=== PATIENT | female | born 1950 | race Caucasian/White ===

== ENCOUNTER 2018-06-22 04:40 | Inpatient (IN) | payer MEDICARE, BC ==
[~2018-06-22] VITALS: Ht 170.2 cm; Wt 72.2 kg
[~2018-06-22 04:40] MED LIST: BISO1TAB39 PO; CA C-1 PO; CYAN25003 PO; FLEC50TA3 PO; FLUT10SP BOTHNARES; FOLI0.8C PO; IBUP-24 PO; IBUP1TAB11 PO; POTA20TA19 PO
[2018-06-22] MEDS ORDERED: azithromycin/NS 500mg/250ml 250 ML IV ONE (05:15)
[2018-06-22] MEDS ORDERED: CefTRIAXone/D5W-Rocephin 1gm 50 ML IV ONE (05:15)
[2018-06-22] MEDS ORDERED: normal saline 1000ML IV soln IVB ONE (05:15)
[2018-06-22 05:35] LABS: ALANINE AMINOTRANSFERASE 42 U/L (12-78); ALBUMIN 3.3 G/DL (3.4-5.0); ALBUMIN/GLOBULIN RATIO 0.9 (1.1-1.5); ALKALINE PHOSPHATASE 84 IU/L (46-116); ANION GAP 13 (8-16); ASPARTATE AMINO TRANSFERASE 27 U/L (10-37); BILIRUBIN,TOTAL 1.1 MG/DL (0.1-1.0); BLOOD UREA NITROGEN 12 MG/DL (7-18); CALCIUM 8.6 MG/DL (8.5-10.1); CHLORIDE 102 MMOL/L (99-107); CREATININE 1.09 MG/DL (0.40-0.90); GLUCOSE 122 MG/DL (70-104); POTASSIUM 3.2 MMOL/L (3.5-5.1); SODIUM 139 MMOL/L (135-145); TOTAL CARBON DIOXIDE 24.4 MMOL/L (24-32); TOTAL PROTEIN 7.1 G/DL (6.4-8.2); eGFR 50 ML/MIN
[2018-06-22] MEDS ORDERED: CALC1TAB PO (05:38)
[2018-06-22] MEDS ORDERED: ALBU8.5H8 INH (05:38)
[2018-06-22] MEDS ORDERED: POTA10TA19 PO (05:38)
[2018-06-22] MEDS ORDERED: FLUT50BL (05:38)
[2018-06-22] MEDS ORDERED: CYAN100097 PO (05:38)
[2018-06-22] MEDS ORDERED: ATOR40TA PO (05:38)
[2018-06-22] MEDS ORDERED: APIX5TAB3 PO (05:38)
[2018-06-22] MEDS ORDERED: FLEC100T2 PO (05:38)
[2018-06-22] MEDS ORDERED: [UNRECOGNIZED DRUG - CODE] PO (05:38)
[2018-06-22] MEDS ORDERED: FOLI0.8C PO (05:38)
[2018-06-22] MEDS ORDERED: BISO1TAB4 PO (05:38)
[2018-06-22 05:42] LABS: MAGNESIUM 1.6 MG/DL (1.5-2.4)
[2018-06-22 05:46] LABS: INR 1.2 INR; PARTIAL THROMBOPLASTIN TIME 33 SECONDS (22-32); PROTHROMBIN TIME 11.7 SECONDS (9.0-12.0)
[2018-06-22] MEDS ORDERED: normal saline 1000ml 1,000 ML IV SCH (06:08)
[2018-06-22] MEDS ORDERED: HYDROmorphone 1 mg/ml syringe IV PRN (06:10)
[2018-06-22] MEDS ORDERED: metoclopramide 5 mg/ml inj IV PRN (06:10)
[2018-06-22] MEDS ORDERED: HYDROcodone/acetaminophen 10/325mg tab PO PRN (06:10)
[2018-06-22] MEDS ORDERED: magnesium hydroxide 30ml (MOM) UD suspension PO PRN (06:10)
[2018-06-22] MEDS ORDERED: albuterol 2.5 MG/3 ML nebule NEB PRN (06:10)
[2018-06-22] MEDS ORDERED: morphine 4 MG/ML inj SYRINge IV PRN (06:10)
[2018-06-22] MEDS ORDERED: bisacodyl 10mg suppository rectal RC PRN (06:10)
[2018-06-22] MEDS ORDERED: mag hydrox/Alum hydrox/simeth 30ml oral suspension PO PRN (06:10)
[2018-06-22] MEDS ORDERED: potassium Cl 20 mEq SR tablet PO PRN (06:10)
[2018-06-22] MEDS ORDERED: acetaminophen 650mg rectal suppository RC PRN (06:10)
[2018-06-22] MEDS ORDERED: acetaminophen 325mg tablet PO PRN ×2 (06:10→16:55)
[2018-06-22 06:46] LABS: BASOPHILS % (AUTO) 0.1 % (0-1); EOSINOPHILS % (AUTO) 0.4 % (0-6); HEMATOCRIT 41.1 % (35.0-45.0); HEMOGLOBIN 13.5 g/dl (12.0-16.0); LYMPHOCYTES # (AUTO) 0.4 X10'3 (1.1-4.8); LYMPHOCYTES % (AUTO) 4.5 % (21-51); MEAN CORPUSCULAR HEMOGLOBIN 29.4 PG (27.0-31.0); MEAN CORPUSCULAR HGB CONC 32.9 % (33.0-36.5); MEAN CORPUSCULAR VOLUME 89.3 FL (78-98); MEAN PLATELET VOLUME 10.2 FL (7.4-10.4); MONOCYTES # (AUTO) 0.5 X10'3 (0-0.9); MONOCYTES % (AUTO) 6.6 % (2-12); NEUTROPHILS # (AUTO) 7.3 X10'3 (1.8-7.7); NEUTROPHILS % (AUTO) 88.4 % (42-75); PLATELET COUNT 148 X10'3 (140-440); RED CELL DISTRIBUTION WIDTH 11.9 % (11.5-14.5); WHITE BLOOD COUNT 8.2 X10'3 (4.5-11.0)
--- NOTE | 2018-06-22 06:51 | NUR ---
CONTACTED DR MARCUM IN REGARDS TO AN ORDER OF NS @ 100ML/HOUR TO SEE IF HE WOULD LOWER THE HOURLY RATE, PT DOES NOT HAVE CRACKLES BUT PRO BNP WAS ELEVATED A READING OF 6155. HER BP READINGS WERE A BIT ON THE HYPOTENSIVE SIDE AND HE THOUGHT PT WOULD BENEFIT FROM THE FLUIDS AT THE SPECIFIED RATE. I WILL FOLLOW THE ORDER AND MONITOR/AUSCULTATE FOR BREATH SOUNDS.
[2018-06-22 06:55] LABS: HEMOGLOBIN A1C 5.4 % (4.5-6.2)
--- NOTE | 2018-06-22 07:39 | NUR ---
ATTEMPTED TO GIVE REPORT BUT THE RN IS NOT READY WILL CALL BACK
[2018-06-22 07:43] LABS: PLATELET ESTIMATE NORMAL; TOTAL CELLS COUNTED 100
--- NOTE | 2018-06-22 07:55 | NUR ---
Received report from YESICA Matson in ER. Patient will ariive on gurarrington. Patient has taken her Lipitor, eliquis, and flecainide at home at 0400.
[2018-06-22] MEDS: apixaban 5mg tablet PO SCH ×2 (08:00→20:27)
[2018-06-22] MEDS ORDERED: methylPREDNISolone sod succ/PF 40mg inj. IV SCH (08:00)
[2018-06-22] MEDS: flecainide 50mg tablet PO SCH ×2 (08:00→20:27)
[2018-06-22] MEDS: CefTRIAXone/D5W-Rocephin 1gm 50 ML IV SCH ×2 (08:00→20:26)
[2018-06-22] MEDS: atorvastatin 20mg tablet PO SCH (08:00)
[2018-06-22] MEDS: docusate sod 100mg capsule PO SCH ×2 (08:00→20:32)
[2018-06-22 08:15] VITALS: BP 115/76
--- NOTE | 2018-06-22 08:15 | NUR ---
Patient arrived in room 355 A alert and stable.
[2018-06-22] MEDS: ondansetron/PF 4mg/2ml inj IV PRN (09:29)
[2018-06-22] MEDS: azithromycin/NS 500mg/250ml 250 ML IV SCH (09:52)
[2018-06-22] MEDS ORDERED: ipratropium/albuterol 3ml nebule NEB PRN (10:30)
[2018-06-22] MEDS ORDERED: ipratropium/albuterol 3ml nebule NEB SCH (11:00)
[2018-06-22 12:02] VITALS: BP 145/94
[2018-06-22] MEDS: potassium Cl 20 mEq SR tablet PO PRN ×2 (12:19→16:47)
[2018-06-22] MEDS: bisoprolol 5mg tablet PO SCH (13:00)
[2018-06-22] MEDS ORDERED: furosemide 40mg/4ml inj IV ONE (13:00)
[2018-06-22] MEDS ORDERED: metoprolol tartrate 12.5mg (1/2 tablet) PO PRN (13:10)
[2018-06-22] MEDS ORDERED: FLUT16SP2 BOTHNARES (13:25)
[2018-06-22] MEDS: ipratropium 0.5 MG/2.5ML nebule IH SCH ×2 (15:00→20:35)
--- NOTE | 2018-06-22 18:21 | NUR ---
Problems reprioritized. Patient report given, PARISH ROBERT questions answered & plan of care reviewed with . PATIENT IN BED WITH AT BEDSIDE
[2018-06-22 18:50] VITALS: BP 119/66
[2018-06-22] MEDS: lactobacillus rhamnosus 10,000 MMU CELLS/CAPSULE PO SCH (20:26)
[2018-06-22] MEDS: potassium Cl 20 mEq SR tablet PO SCH (20:27)
[2018-06-22] MEDS: famotidine 20mg tablet PO SCH (20:27)
[2018-06-22] MEDS: fluticasone nasal spray 16GM bottle NS SCH (20:33)
[2018-06-22] MEDS ORDERED: temazepam 15mg capsule PO PRN (21:00)
[2018-06-23] VITALS: BP 114/79
--- NOTE | 2018-06-23 06:15 | NUR ---
Patient in room [facility]. I have received report from Charlie ROBERT and had the opportunity to ask questions and assume patient care. Patient awake alert, she was up walking to the restroom
[2018-06-23 06:36] LABS: ALBUMIN 2.8 G/DL (3.4-5.0); ANION GAP 7 (8-16); BLOOD UREA NITROGEN 15 MG/DL (7-18); BUN/CREATININE RATIO 18.5 (6.6-38.0); CALCIUM 8.4 MG/DL (8.5-10.1); CHLORIDE 105 MMOL/L (99-107); CREATININE 0.81 MG/DL (0.40-0.90); GLUCOSE 88 MG/DL (70-104); SODIUM 141 MMOL/L (135-145); TOTAL CARBON DIOXIDE 28.7 MMOL/L (24-32); eGFR 71 ML/MIN
[2018-06-23 06:39] LABS: BASOPHILS % (AUTO) 0.3 % (0-1); EOSINOPHILS % (AUTO) 0.4 % (0-6); HEMATOCRIT 36.2 % (35.0-45.0); HEMOGLOBIN 12.4 g/dl (12.0-16.0); LYMPHOCYTES # (AUTO) 0.6 X10'3 (1.1-4.8); LYMPHOCYTES % (AUTO) 8.4 % (21-51); MEAN CORPUSCULAR HEMOGLOBIN 30.8 PG (27.0-31.0); MEAN CORPUSCULAR HGB CONC 34.1 % (33.0-36.5); MEAN CORPUSCULAR VOLUME 90.2 FL (78-98); MEAN PLATELET VOLUME 9.6 FL (7.4-10.4); MONOCYTES # (AUTO) 0.4 X10'3 (0-0.9); MONOCYTES % (AUTO) 6.4 % (2-12); NEUTROPHILS # (AUTO) 5.8 X10'3 (1.8-7.7); NEUTROPHILS % (AUTO) 84.5 % (42-75); PLATELET COUNT 129 X10'3 (140-440); RED BLOOD COUNT 4.02 X10'6 (4.20-5.60); RED CELL DISTRIBUTION WIDTH 11.8 % (11.5-14.5); WHITE BLOOD COUNT 6.8 X10'3 (4.5-11.0)
--- NOTE | 2018-06-23 06:50 | NUR ---
Problems reprioritized. Patient report given, questions answered & plan of care reviewed with MELONIE. Addendum: 06/23/18 at 0651 by Josep Mesa RN Amended: Links added.
[2018-06-23 07:08] VITALS: BP 139/72
[2018-06-23] MEDS: ipratropium 0.5 MG/2.5ML nebule IH SCH ×4 (07:34→19:00)
[2018-06-23] MEDS: docusate sod 100mg capsule PO SCH ×2 (08:00→19:37)
[2018-06-23] MEDS ORDERED: non-formulary drug (Fluticasone Propionate (Flonase) 2 SPRAYS) BOTHNARES SCH (08:00)
[2018-06-23] MEDS: CefTRIAXone/D5W-Rocephin 1gm 50 ML IV SCH ×2 (08:37→19:40)
[2018-06-23] MEDS: folic acid 0.4mg tablet PO SCH (08:38)
[2018-06-23] MEDS: predniSONE 20 mg tablet PO SCH (08:38)
[2018-06-23] MEDS: apixaban 5mg tablet PO SCH ×2 (08:38→19:38)
[2018-06-23] MEDS: cyanocobalamin 500mcg tablet PO SCH (08:38)
[2018-06-23] MEDS: flecainide 50mg tablet PO SCH ×2 (08:39→19:37)
[2018-06-23] MEDS: potassium Cl 20 mEq SR tablet PO SCH ×2 (08:39→22:46)
[2018-06-23] MEDS: atorvastatin 20mg tablet PO SCH (08:39)
[2018-06-23] MEDS: lactobacillus rhamnosus 10,000 MMU CELLS/CAPSULE PO SCH ×2 (08:39→19:37)
[2018-06-23] MEDS: furosemide 20 MG/2 ML vial IV SCH ×2 (08:40→19:37)
[2018-06-23] MEDS: calcium carbonate/vitamin D3 tablet PO SCH (08:40)
[2018-06-23] MEDS: bisoprolol 5mg tablet PO SCH (08:44)
[2018-06-23] MEDS: azithromycin/NS 500mg/250ml 250 ML IV SCH (09:30)
[2018-06-23] MEDS: ondansetron/PF 4mg/2ml inj IV PRN (11:26)
[2018-06-23 12:25] VITALS: BP 134/101
--- NOTE | 2018-06-23 18:30 | NUR ---
Problems reprioritized. Patient report given, Edwige RN questions answered & plan of care reviewed with .
--- NOTE | 2018-06-23 18:50 | NUR ---
Patient in room [facility]. I have received report from Avani ROBERT and had the opportunity to ask questions and assume patient care.
[2018-06-23 20:00] VITALS: BP 121/103
[2018-06-23] MEDS: famotidine 20mg tablet PO SCH (22:47)
[2018-06-23] MEDS: fluticasone nasal spray 16GM bottle NS SCH (22:48)
[2018-06-23 23:30] VITALS: BP 160/111
--- NOTE | 2018-06-24 00:44 | NUR ---
Pt. stated that she was having trouble breathing. VS 97.8, 111, 18, 178/95, 92% on 2L, o pain. paged RT. Gave prn metoprolol, called md. Patient weighed and went from 66kg 06/22/18 to 72.2kg.
[2018-06-24] MEDS ORDERED: furosemide 10 MG/1 ML 10ml inj IV ONE (01:00)
[2018-06-24 01:51] LABS: CLARITY,URINE CLEAR (Clear); COLOR,URINE YELLOW (Yellow); GLUCOSE, URINE NEGATIVE (Neg); KETONES,URINE NEGATIVE (Neg); LEUKOCYTE ESTERASE ,URINE NEGATIVE (Neg); NITRITES, URINE NEGATIVE (Neg); OCCULT BLOOD,URINE TRACE-LYSED (Neg); PROTEIN,URINE NEGATIVE (Neg); UROBILINOGEN,URINE 0.2 E.U/dL (0.2-1.0)
[2018-06-24 02:01] LABS: UA COLLECTION TYPE CLN CATCH MIDSTREAM
[2018-06-24 02:06] LABS: ALANINE AMINOTRANSFERASE 43 U/L (12-78); ALBUMIN 2.9 G/DL (3.4-5.0); ALBUMIN/GLOBULIN RATIO 0.7 (1.1-1.5); ALKALINE PHOSPHATASE 78 IU/L (46-116); ANION GAP 8 (8-16); ASPARTATE AMINO TRANSFERASE 43 U/L (10-37); BILIRUBIN,TOTAL 0.5 MG/DL (0.1-1.0); BLOOD UREA NITROGEN 16 MG/DL (7-18); CALCIUM 8.6 MG/DL (8.5-10.1); CHLORIDE 99 MMOL/L (99-107); CREATININE 0.89 MG/DL (0.40-0.90); GLUCOSE 89 MG/DL (70-104); POTASSIUM 3.6 MMOL/L (3.5-5.1); SODIUM 138 MMOL/L (135-145); TOTAL CARBON DIOXIDE 30.8 MMOL/L (24-32); TOTAL PROTEIN 6.8 G/DL (6.4-8.2); eGFR 63 ML/MIN
[2018-06-24 02:09] LABS: BACTERIA,URINE NONE SEEN /HPF (Neg); RBC,URINE 0-2 /HPF (0-2); SQUAMOUS EPITHELIAL CELL,UR FEW /LPF (FEW); WBC,URINE 0-4 /HPF (0-4)
[2018-06-24 02:10] LABS: ABG BASE EXCESS 5.4 mmol/L (-2.0-3.0); ABG HCO3 30.9 mmol/L (22.0-26.0); ABG OXYGEN SATURATION 95.6 % (95-98); ABG PCO2 (T) 48.6 mmHg (32.0-45.0); ABG PH (T) 7.421 (7.350-7.450); ABG PO2 (T) 73.3 mmHg (83-108); ALLEN'S TEST Positive; FCOHb 0.1 % (0.5-1.5); FLOW 3 L/min; FMetHb 0.1 % (0.3-1.12); FO2Hb 95.4 % (94-100); PATIENT TEMPERATURE 36.9; RESPIRATORY RATE (OBSERVED) 18 b/min; TOTAL HEMOGLOBIN 13.4 G/dl (12.0-16.0)
[2018-06-24 02:12] LABS: BASOPHILS % (AUTO) 0.1 % (0-1); EOSINOPHILS % (AUTO) 0 % (0-6); HEMATOCRIT 37.7 % (35.0-45.0); HEMOGLOBIN 12.7 g/dl (12.0-16.0); LYMPHOCYTES # (AUTO) 0.7 X10'3 (1.1-4.8); LYMPHOCYTES % (AUTO) 10.1 % (21-51); MEAN CORPUSCULAR HEMOGLOBIN 29.9 PG (27.0-31.0); MEAN CORPUSCULAR HGB CONC 33.7 % (33.0-36.5); MEAN CORPUSCULAR VOLUME 88.9 FL (78-98); MEAN PLATELET VOLUME 9.7 FL (7.4-10.4); MONOCYTES # (AUTO) 0.6 X10'3 (0-0.9); MONOCYTES % (AUTO) 8.4 % (2-12); NEUTROPHILS # (AUTO) 5.4 X10'3 (1.8-7.7); NEUTROPHILS % (AUTO) 81.4 % (42-75); PLATELET COUNT 173 X10'3 (140-440); RED BLOOD COUNT 4.24 X10'6 (4.20-5.60); RED CELL DISTRIBUTION WIDTH 11.8 % (11.5-14.5); WHITE BLOOD COUNT 6.8 X10'3 (4.5-11.0)
[2018-06-24 02:14] LABS: CREATINE KINASE 710 U/L (26-192); D-DIMER 2.01 MG/L FEU (0-0.50); TROPONIN I < 0.04 NG/ML (0.0-0.05)
[2018-06-24 03:49] LABS: PLATELET ESTIMATE NORMAL; TOTAL CELLS COUNTED 100
--- NOTE | 2018-06-24 05:05 | NUR ---
After paging MD earlier, new orders for 80mg IV push, draw labs, chest x-ray, ABg and a UA. Lasix given all labs and Ua were collected and xray obtained. Pt's VS at 0215: 99, 18, 134/85, 95 on 3L o2.
--- NOTE | 2018-06-24 05:22 | NUR ---
Patient standing up at the sink, states she "feels a whole lot better since having the extra lasix". Patient remains afebrile at 98.5, and states has voided twice, large amounts in the toilet.
[2018-06-24 05:53] LABS: ANION GAP 7 (8-16); BLOOD UREA NITROGEN 16 MG/DL (7-18); BUN/CREATININE RATIO 18.2 (6.6-38.0); CALCIUM 8.6 MG/DL (8.5-10.1); CHLORIDE 99 MMOL/L (99-107); CREATININE 0.88 MG/DL (0.40-0.90); GLUCOSE 83 MG/DL (70-104); POTASSIUM 3.4 MMOL/L (3.5-5.1); SODIUM 139 MMOL/L (135-145); TOTAL CARBON DIOXIDE 32.9 MMOL/L (24-32); eGFR 64 ML/MIN
--- NOTE | 2018-06-24 06:20 | NUR ---
Problems reprioritized. Patient report given, questions answered & plan of care reviewed with Avani ROBERT.
--- NOTE | 2018-06-24 06:25 | NUR ---
Patient in room [facility]. I have received report from Edwige ROBERT and had the opportunity to ask questions and assume patient care.
[2018-06-24 07:46] VITALS: BP 137/70
[2018-06-24] MEDS: ipratropium 0.5 MG/2.5ML nebule IH SCH ×4 (07:59→19:58)
[2018-06-24] MEDS: folic acid 0.4mg tablet PO SCH (08:21)
[2018-06-24] MEDS: potassium Cl 20 mEq SR tablet PO SCH ×2 (08:21→20:33)
[2018-06-24] MEDS: cyanocobalamin 500mcg tablet PO SCH (08:22)
[2018-06-24] MEDS: predniSONE 20 mg tablet PO SCH (08:22)
[2018-06-24] MEDS: lactobacillus rhamnosus 10,000 MMU CELLS/CAPSULE PO SCH ×2 (08:23→20:33)
[2018-06-24] MEDS: atorvastatin 20mg tablet PO SCH (08:23)
[2018-06-24] MEDS: azithromycin/NS 500mg/250ml 250 ML IV SCH (08:23)
[2018-06-24] MEDS: calcium carbonate/vitamin D3 tablet PO SCH (08:23)
[2018-06-24] MEDS: apixaban 5mg tablet PO SCH ×2 (08:23→20:32)
[2018-06-24] MEDS: flecainide 50mg tablet PO SCH ×2 (08:23→20:33)
[2018-06-24] MEDS: docusate sod 100mg capsule PO SCH ×2 (08:23→20:32)
[2018-06-24] MEDS: furosemide 20 MG/2 ML vial IV SCH ×2 (08:23→20:33)
[2018-06-24] MEDS: bisoprolol 5mg tablet PO SCH (10:46)
[2018-06-24] MEDS: CefTRIAXone/D5W-Rocephin 1gm 50 ML IV SCH ×2 (10:46→20:33)
[2018-06-24 12:02] VITALS: BP 118/76
[2018-06-24] MEDS: potassium Cl 20 mEq SR tablet PO PRN (15:20)
[2018-06-24 18:00] VITALS: BP 140/73
--- NOTE | 2018-06-24 18:30 | NUR ---
Problems reprioritized. Patient report given, Radha ROBERT questions answered & plan of care reviewed with .
--- NOTE | 2018-06-24 18:30 | NUR ---
Received report from primary care nurse Avani ROBERT. Assumed patient care. Patient is awake and alert on room air visiting with her roommate. Call light and items of frequent use within reach. Will continue to monitor for changes.
[2018-06-24] MEDS: famotidine 20mg tablet PO SCH (20:32)
[2018-06-24] MEDS: fluticasone nasal spray 16GM bottle NS SCH (20:39)
[2018-06-25] VITALS: BP 134/74
[2018-06-25 06:07] LABS: ANION GAP 9 (8-16); BLOOD UREA NITROGEN 18 MG/DL (7-18); BUN/CREATININE RATIO 18.8 (6.6-38.0); CALCIUM 9.1 MG/DL (8.5-10.1); CHLORIDE 99 MMOL/L (99-107); CREATININE 0.96 MG/DL (0.40-0.90); GLUCOSE 83 MG/DL (70-104); POTASSIUM 3.4 MMOL/L (3.5-5.1); SODIUM 142 MMOL/L (135-145); eGFR 58 ML/MIN
[2018-06-25 06:08] LABS: BASOPHILS % (AUTO) 0.1 % (0-1); EOSINOPHILS # (AUTO) 0.1 X10'3 (0-0.9); EOSINOPHILS % (AUTO) 0.9 % (0-6); HEMATOCRIT 41.2 % (35.0-45.0); HEMOGLOBIN 13.6 g/dl (12.0-16.0); LYMPHOCYTES # (AUTO) 1.2 X10'3 (1.1-4.8); LYMPHOCYTES % (AUTO) 18.1 % (21-51); MEAN CORPUSCULAR HEMOGLOBIN 29.4 PG (27.0-31.0); MEAN CORPUSCULAR VOLUME 89.2 FL (78-98); MEAN PLATELET VOLUME 9.4 FL (7.4-10.4); MONOCYTES # (AUTO) 0.9 X10'3 (0-0.9); MONOCYTES % (AUTO) 12.5 % (2-12); NEUTROPHILS # (AUTO) 4.6 X10'3 (1.8-7.7); NEUTROPHILS % (AUTO) 68.4 % (42-75); PLATELET COUNT 206 X10'3 (140-440); RED BLOOD COUNT 4.62 X10'6 (4.20-5.60); RED CELL DISTRIBUTION WIDTH 11.7 % (11.5-14.5); WHITE BLOOD COUNT 6.8 X10'3 (4.5-11.0)
[2018-06-25 07:00] VITALS: BP 139/91
[2018-06-25] MEDS: calcium carbonate/vitamin D3 tablet PO SCH (07:12)
[2018-06-25] MEDS: furosemide 20 MG/2 ML vial IV SCH (07:12)
[2018-06-25] MEDS: atorvastatin 20mg tablet PO SCH (07:12)
[2018-06-25] MEDS: bisoprolol 5mg tablet PO SCH (07:12)
[2018-06-25] MEDS: flecainide 50mg tablet PO SCH (07:13)
[2018-06-25] MEDS: lactobacillus rhamnosus 10,000 MMU CELLS/CAPSULE PO SCH (07:14)
[2018-06-25] MEDS: docusate sod 100mg capsule PO SCH (07:14)
[2018-06-25] MEDS: apixaban 5mg tablet PO SCH (07:14)
[2018-06-25] MEDS: folic acid 0.4mg tablet PO SCH (07:14)
[2018-06-25] MEDS: potassium Cl 20 mEq SR tablet PO SCH (07:15)
[2018-06-25] MEDS: CefTRIAXone/D5W-Rocephin 1gm 50 ML IV SCH (07:15)
[2018-06-25] MEDS: fluticasone nasal spray 16GM bottle NS SCH (07:18)
[2018-06-25] MEDS: cyanocobalamin 500mcg tablet PO SCH (07:25)
[2018-06-25] MEDS: ipratropium 0.5 MG/2.5ML nebule IH SCH ×2 (07:29→10:55)
[2018-06-25] MEDS ORDERED: azithromycin 250mg tablet PO SCH (08:00)
[2018-06-25] MEDS ORDERED: prednisone 10mg tablet PO SCH (08:00)
--- NOTE | 2018-06-25 09:38 | NUR ---
Patient ambulating with and checked patients oxygen saturation she is currently 91% on RA with ambulation
[2018-06-25] MEDS ORDERED: potassium Cl 20 mEq SR tablet PO STA (10:45)
[2018-06-25 11:00] VITALS: BP 123/63
[2018-06-25] MEDS ORDERED: CEFD300C3 PO (12:19)
[2018-06-25] MEDS ORDERED: LACT1CAP26 PO (12:19)
[2018-06-25] MEDS ORDERED: FURO40TA4 PO (12:19)
[2018-06-25] MEDS ORDERED: ATRNS (12:19)
[2018-06-25] MEDS ORDERED: BUDE10.22 INH (12:19)
--- NOTE | 2018-06-25 14:11 | NUR ---
Patients discharge instructions reviewed with patient and patient verbalized understanding. Patients at bedside. Tele Dc'd for discharge along with PIV cannula intact. Patient states she has all her belongings. Patient was taken to vehicle where was waiting by Sandra Prather via wheelchair.
[2018-06-25] MEDS ORDERED: fluticasone nasal spray 16GM bottle NS SCH (20:00)
== END 2018-06-25 13:40 | disposition home or self-care (01) | DRG 871 ==
LOC: ER 04:41 → ED HOLD 06:08 → EDBEDREQ 07:33 → SUR 3N 08:13
PROVIDERS: ADMIT Family Medicine; ATTEND Hospitalist
DX: A41.9 Sepsis, unspecified organism (principal); J13 Pneumonia due to Streptococcus pneumoniae; I50.33 Acute on chronic diastolic (congestive) heart failure; J96.01 Acute respiratory failure with hypoxia; J44.1 Chronic obstructive pulmonary disease with (acute) exacerbation; J44.0 Chronic obstructive pulmonary disease with (acute) lower respiratory infection; E78.00 Pure hypercholesterolemia, unspecified; E78.5 Hyperlipidemia, unspecified; E86.0 Dehydration; E87.6 Hypokalemia; I48.2 Chronic atrial fibrillation; Z79.899 Other long term (current) drug therapy; Z79.01 Long term (current) use of anticoagulants; Z88.8 Allergy status to other drugs, medicaments and biological substances; Z87.891 Personal history of nicotine dependence
CPT/HCPCS: 36415; 36600; 71045; 80048; 80053; 81001; 82550; 82803; 83036; 83605; 83735; 83880; 84100; 84145; 84443; 84484; 85018; 85025; 85379; 85610; 85730; 87040; 87070; 87502; 87503; 93005; 93306; 94640; 94760; 96365; 96368; 99285; G0378; J0456; J0696; J1940; J2405; J2920; J7030; J7512

== ENCOUNTER 2018-07-06 05:51 | Day surgery (SDC) | payer MEDICARE, BC ==
[2018-07-05 09:37] LABS: BASOPHILS # (AUTO) 0.1 X10'3 (0-0.2); EOSINOPHILS # (AUTO) 0.3 X10'3 (0-0.9); EOSINOPHILS % (AUTO) 3.9 % (0-6); HEMOGLOBIN 13.1 g/dl (12.0-16.0); LYMPHOCYTES # (AUTO) 1.3 X10'3 (1.1-4.8); LYMPHOCYTES % (AUTO) 18.8 % (21-51); MEAN CORPUSCULAR HEMOGLOBIN 28.6 PG (27.0-31.0); MEAN CORPUSCULAR HGB CONC 31.9 % (33.0-36.5); MEAN CORPUSCULAR VOLUME 89.6 FL (78-98); MEAN PLATELET VOLUME 8.8 FL (7.4-10.4); MONOCYTES # (AUTO) 0.8 X10'3 (0-0.9); MONOCYTES % (AUTO) 11.1 % (2-12); NEUTROPHILS # (AUTO) 4.5 X10'3 (1.8-7.7); NEUTROPHILS % (AUTO) 65.2 % (42-75); PLATELET COUNT 267 X10'3 (140-440); RED BLOOD COUNT 4.58 X10'6 (4.20-5.60); RED CELL DISTRIBUTION WIDTH 12.3 % (11.5-14.5)
[2018-07-05 09:52] LABS: PARTIAL THROMBOPLASTIN TIME 26 SECONDS (22-32); PROTHROMBIN TIME 10.2 SECONDS (9.0-12.0)
[2018-07-05 09:54] LABS: ALBUMIN 3.1 G/DL (3.4-5.0); ANION GAP 10 (8-16); BLOOD UREA NITROGEN 18 MG/DL (7-18); BUN/CREATININE RATIO 15.5 (6.6-38.0); CALCIUM 8.7 MG/DL (8.5-10.1); CHLORIDE 106 MMOL/L (99-107); CREATININE 1.16 MG/DL (0.40-0.90); GLUCOSE 103 MG/DL (70-104); POTASSIUM 3.3 MMOL/L (3.5-5.1); SODIUM 147 MMOL/L (135-145); TOTAL CARBON DIOXIDE 31.4 MMOL/L (24-32); eGFR 47 ML/MIN
[2018-07-06] VITALS (12 sets, daily range): BP systolic 108–129; BP diastolic 58–75
[~2018-07-06] VITALS: Ht 170.2 cm; Wt 71.1 kg
[~2018-07-06 05:51] MED LIST changes: +ALBU8.5H8 INH; +APIX5TAB3 PO; +ATOR40TA PO; +ATRNS; -BISO1TAB39 PO; +BUDE10.22 INH; -CA C-1 PO; +CALC1TAB PO; +CEFD300C3 PO; +CYAN100097 PO; -CYAN25003 PO; +FLEC100T2 PO; -FLEC50TA3 PO; -FLUT10SP BOTHNARES; +FLUT16SP2 BOTHNARES; +FURO40TA4 PO; -IBUP-24 PO; -IBUP1TAB11 PO; +LACT1CAP26 PO; +POTA10TA19 PO; -POTA20TA19 PO; +[UNRECOGNIZED DRUG - CODE] PO
[2018-07-06] MEDS ORDERED: LORazepam 0.5 MG tablet PO PRN (06:05)
[2018-07-06] MEDS ORDERED: sod bicarbonate 150mEq in D5W 1,150 ML IV ONE (06:05)
[2018-07-06] MEDS ORDERED: diphenhydrAMINE 25mg capsule PO PRN (06:10)
[2018-07-06] MEDS ORDERED: FURO40TA4 PO (06:16)
[2018-07-06] MEDS ORDERED: LACT1CAP65 PO (06:16)
[2018-07-06] MEDS ORDERED: BUDE10.22 INH (06:18)
[2018-07-06] MEDS ORDERED: ATRNS (06:18)
[2018-07-06] MEDS ORDERED: normal saline 1000ml 1,000 ML IV SCH (06:30)
[2018-07-06] MEDS ORDERED: LIDOcaine/PRILOcaine 5gm cream TP ONE (07:25)
[2018-07-06] MEDS ORDERED: nitroGLYCERIN-Tridil 50MG/D5W 250 ML IV ONE (07:36)
[2018-07-06] MEDS ORDERED: verapamil 2.5 mg/ml inj IV ONE (07:36)
[2018-07-06] MEDS ORDERED: LIDOcaine 1% (10mg/ml)w/preservative injection 20ml MDV ONE (07:37)
[2018-07-06] MEDS ORDERED: fentaNYL/PF 50MCG/1 ML 2ML syringe ONE (07:37)
[2018-07-06] MEDS ORDERED: heparin 1,000unit/ml 10ml vial 10 ML ONE (07:37)
[2018-07-06] MEDS ORDERED: iohexol 350 MG/ML 50ML vial IV ONE ×2 (07:37→08:36)
[2018-07-06] MEDS ORDERED: midazolam 2 mg/2 ml injection ONE (07:37)
[2018-07-06] MEDS ORDERED: iohexol 350MG/ML 100ml bottle IV ONE (07:37)
== END 2018-07-06 14:50 | disposition home or self-care (01) ==
LOC: SSTAY O 05:51
PROVIDERS: ATTEND Internal Medicine Cardiovascular Disease
DX: I25.119 Atherosclerotic heart disease of native coronary artery with unspecified angina pectoris (principal); I48.0 Paroxysmal atrial fibrillation; I10 Essential (primary) hypertension; I49.5 Sick sinus syndrome; E78.49 Other hyperlipidemia; I34.0 Nonrheumatic mitral (valve) insufficiency; Z88.8 Allergy status to other drugs, medicaments and biological substances; Z79.899 Other long term (current) drug therapy; Z98.890 Other specified postprocedural states; Z90.49 Acquired absence of other specified parts of digestive tract; Z87.891 Personal history of nicotine dependence
CPT/HCPCS: 36415; 80048; 85025; 85610; 85730; 93005; 93458; 99152; 99153; A6257; J1644; J2001; J2250; J3010; J7030; Q0163; Q9967; A4620; C1769; J3490

== ENCOUNTER 2018-07-28 03:46 | Emergency (ER) | payer MEDICARE, BC ==
[~2018-07-28] VITALS: Ht 167.6 cm; Wt 70.9 kg
[~2018-07-28 03:46] MED LIST changes: +BISO1TAB39 PO; -CEFD300C3 PO; -LACT1CAP26 PO; -[UNRECOGNIZED DRUG - CODE] PO
[2018-07-28] MEDS ORDERED: aspirin 81mg tab.chew PO ONE (03:50)
[2018-07-28] MEDS ORDERED: aspirin 325mg tablet PO ONE (04:15)
[2018-07-28 04:18] LABS: BASOPHILS % (AUTO) 0.4 % (0-1); EOSINOPHILS # (AUTO) 0.3 X10'3 (0-0.9); EOSINOPHILS % (AUTO) 4.4 % (0-6); HEMATOCRIT 40.5 % (35.0-45.0); HEMOGLOBIN 13.3 g/dl (12.0-16.0); LYMPHOCYTES # (AUTO) 1.6 X10'3 (1.1-4.8); LYMPHOCYTES % (AUTO) 22.1 % (21-51); MEAN CORPUSCULAR HEMOGLOBIN 29.2 PG (27.0-31.0); MEAN CORPUSCULAR HGB CONC 32.9 g/dL (33.0-36.5); MEAN CORPUSCULAR VOLUME 88.7 FL (78-98); MEAN PLATELET VOLUME 9.1 FL (7.4-10.4); MONOCYTES # (AUTO) 0.7 X10'3 (0-0.9); MONOCYTES % (AUTO) 9.2 % (2-12); NEUTROPHILS # (AUTO) 4.7 X10'3 (1.8-7.7); NEUTROPHILS % (AUTO) 63.9 % (42-75); PLATELET COUNT 161 X10'3 (140-440); RED BLOOD COUNT 4.56 X10'6 (4.20-5.60); RED CELL DISTRIBUTION WIDTH 13.7 % (11.5-14.5); WHITE BLOOD COUNT 7.3 X10'3 (4.5-11.0)
[2018-07-28 04:33] LABS: ALANINE AMINOTRANSFERASE 37 U/L (12-78); ALBUMIN 3.3 G/DL (3.4-5.0); ALBUMIN/GLOBULIN RATIO 0.9 (1.1-1.5); ALKALINE PHOSPHATASE 79 IU/L (46-116); ANION GAP 8 (8-16); ASPARTATE AMINO TRANSFERASE 26 U/L (10-37); BILIRUBIN,TOTAL 0.7 MG/DL (0.1-1.0); BLOOD UREA NITROGEN 24 MG/DL (7-18); BUN/CREATININE RATIO 20.9 (6.6-38.0); CALCIUM 8.8 MG/DL (8.5-10.1); CHLORIDE 107 MMOL/L (99-107); CREATININE 1.15 MG/DL (0.40-0.90); GLUCOSE 88 MG/DL (70-104); SODIUM 145 MMOL/L (135-145); TOTAL CARBON DIOXIDE 30.1 MMOL/L (24-32); TOTAL PROTEIN 6.9 G/DL (6.4-8.2); eGFR 47 ML/MIN
[2018-07-28 04:34] LABS: POTASSIUM 4.1 MMOL/L (3.5-5.1)
[2018-07-28] MEDS: nitroGLYCERIN 0.4mg SUBLingual tab SL PRN ×3 (04:35→05:07)
--- NOTE | 2018-07-28 04:41 | NUR ---
PIV IN PLACE, LABS DRAWN, ASA 324 AND 1 TAB NITRO GIVEN. AT BEDSIDE. PT REPORTS LAST THURSDAY SHE HAD A CARDIOVERSION WITH DR. FERNANDEZ AND WAS STARTED ON NEW PERSCRIPTION OF SOTALOL 40 MG BID. HE ALSO DISCONTINUED HER FLECAINIDE 100 MG BID AND BISOPROLOL/HTCZ 5/6.25 DAILY. PT REPROTS HER PAIN IS 5 OUT OF 10 SUBSTERNAL AND RADIATES TO HER BACK AND HER NECK. SHE HAS NO OTHER SYMPTOMS.
[2018-07-28 04:52] LABS: PROTHROMBIN TIME 10.6 SECONDS (9.0-12.0)
[2018-07-28] MEDS ORDERED: SOTA80TA73 PO (04:52)
[2018-07-28] MEDS ORDERED: APIX5TAB3 PO (04:52)
--- NOTE | 2018-07-28 04:57 | NUR ---
pt reports cp now 2 out of 10 and not radiating to her back. she continues to have anterior neck pain that radiates to her right ear. med rec completed., nagi, at bedside. vss.
--- NOTE | 2018-07-28 04:59 | NUR ---
dr. leonard aware of above note.
--- NOTE | 2018-07-28 05:31 | NUR ---
PT TO BE ADMITTED, AWAITING HOSPITALIST.
--- NOTE | 2018-07-28 08:55 | NUR ---
Call placed to Dr. Persaud's answering service. They paged him and we are awaiting a call back.
[2018-07-28 10:44] VITALS: BP 145/92
== END 2018-07-28 10:46 | disposition home or self-care (01) ==
LOC: ER 03:47
DX: I48.91 Unspecified atrial fibrillation (principal); I50.9 Heart failure, unspecified; E78.00 Pure hypercholesterolemia, unspecified; J44.9 Chronic obstructive pulmonary disease, unspecified; Z88.8 Allergy status to other drugs, medicaments and biological substances; Z79.899 Other long term (current) drug therapy; Z87.891 Personal history of nicotine dependence
CPT/HCPCS: 36415; 71045; 80053; 83735; 83880; 84484; 85025; 85610; 93005; 99284

== ENCOUNTER 2018-08-11 10:27 | Day surgery (SDC) | payer MEDICARE, BC ==
[2018-08-11] VITALS (28 sets, daily range): BP systolic 136–175; BP diastolic 66–118
[~2018-08-11] VITALS: Ht 170.2 cm; Wt 71.3 kg
[~2018-08-11 10:27] MED LIST changes: -BISO1TAB39 PO; -FLEC100T2 PO; +SOTA80TA73 PO
[2018-08-11] MEDS ORDERED: normal saline 1000ml 1,000 ML IV SCH ×2 (11:00→11:25)
[2018-08-11] MEDS ORDERED: LORazepam 0.5 MG tablet PO ONE ×2 (11:00→11:25)
[2018-08-11] MEDS ORDERED: SOTA80TA73 PO (11:15)
[2018-08-11] MEDS ORDERED: MIDAZolam 5mg/ml 2ml vial IV ONE (11:25)
[2018-08-11] MEDS ORDERED: morphine 10mg/ml inj. IV ONE (11:25)
[2018-08-11] MEDS ORDERED: amiodarone in dextrose, iso-osm 150mg/100ml bag IV ONE (11:25)
[2018-08-11] MEDS ORDERED: atropine 0.1mg/ml 10ml syringe IV ONE (11:25)
[2018-08-11 12:39] LABS: ANION GAP 9 (8-16); BASOPHILS # (AUTO) 0.1 X10'3 (0-0.2); BASOPHILS % (AUTO) 0.8 % (0-1); BLOOD UREA NITROGEN 16 MG/DL (7-18); BUN/CREATININE RATIO 17.6 (6.6-38.0); CALCIUM 9.5 MG/DL (8.5-10.1); CHLORIDE 107 MMOL/L (99-107); CREATININE 0.91 MG/DL (0.40-0.90); EOSINOPHILS # (AUTO) 0.3 X10'3 (0-0.9); GLUCOSE 77 MG/DL (70-104); HEMATOCRIT 42.5 % (35.0-45.0); HEMOGLOBIN 13.8 g/dl (12.0-16.0); LYMPHOCYTES # (AUTO) 1.7 X10'3 (1.1-4.8); LYMPHOCYTES % (AUTO) 25.1 % (21-51); MEAN CORPUSCULAR HGB CONC 32.6 g/dL (33.0-36.5); MEAN CORPUSCULAR VOLUME 88.9 FL (78-98); MEAN PLATELET VOLUME 9.1 FL (7.4-10.4); MONOCYTES # (AUTO) 0.5 X10'3 (0-0.9); MONOCYTES % (AUTO) 8.2 % (2-12); NEUTROPHILS # (AUTO) 4.1 X10'3 (1.8-7.7); NEUTROPHILS % (AUTO) 60.9 % (42-75); PLATELET COUNT 206 X10'3 (140-440); POTASSIUM 3.6 MMOL/L (3.5-5.1); RED BLOOD COUNT 4.78 X10'6 (4.20-5.60); RED CELL DISTRIBUTION WIDTH 14.5 % (11.5-14.5); SODIUM 145 MMOL/L (135-145); TOTAL CARBON DIOXIDE 29.5 MMOL/L (24-32); WHITE BLOOD COUNT 6.7 X10'3 (4.5-11.0); eGFR 62 ML/MIN
== END 2018-08-11 14:50 | disposition home or self-care (01) ==
LOC: SSTAY O 10:27
PROVIDERS: ATTEND Internal Medicine Cardiovascular Disease
DX: I48.0 Paroxysmal atrial fibrillation (principal); I25.10 Atherosclerotic heart disease of native coronary artery without angina pectoris; I10 Essential (primary) hypertension; Z79.899 Other long term (current) drug therapy; Z98.890 Other specified postprocedural states; E78.49 Other hyperlipidemia; I49.5 Sick sinus syndrome
CPT/HCPCS: 36415; 80048; 85025; 92960; 93005; J0282; J0461; J2250; J2270; J7030

== ENCOUNTER 2018-08-16 08:41 | Outpatient (CLI) | payer MEDICARE, BC ==
[2018-08-16 10:14] LABS: ALBUMIN 3.5 G/DL (3.4-5.0); ANION GAP 8 (8-16); BLOOD UREA NITROGEN 18 MG/DL (7-18); BUN/CREATININE RATIO 16.8 (6.6-38.0); CALCIUM 9.3 MG/DL (8.5-10.1); CHLORIDE 106 MMOL/L (99-107); CREATININE 1.07 MG/DL (0.40-0.90); GLUCOSE 97 MG/DL (70-104); POTASSIUM 3.3 MMOL/L (3.5-5.1); SODIUM 144 MMOL/L (135-145); TOTAL CARBON DIOXIDE 29.7 MMOL/L (24-32); eGFR 51 ML/MIN
== END 2018-08-16 23:59 | disposition home or self-care (01) ==
LOC: LAB 08:41
PROVIDERS: ATTEND Internal Medicine Cardiovascular Disease
DX: I48.0 Paroxysmal atrial fibrillation (principal); R06.02 Shortness of breath; I10 Essential (primary) hypertension; Z91.018 Allergy to other foods; Z88.9 Allergy status to unspecified drugs, medicaments and biological substances
CPT/HCPCS: 36415; 80048; 83880

== ENCOUNTER 2018-09-24 11:42 | Observation (INO) | payer MEDICARE, BC ==
[2018-09-23 13:50] LABS: BASOPHILS # (AUTO) 0.1 X10'3 (0-0.2); BASOPHILS % (AUTO) 0.9 % (0-1); EOSINOPHILS # (AUTO) 0.3 X10'3 (0-0.9); EOSINOPHILS % (AUTO) 4.7 % (0-6); HEMATOCRIT 34.9 % (35.0-45.0); HEMOGLOBIN 11.8 g/dl (12.0-16.0); LYMPHOCYTES # (AUTO) 1.2 X10'3 (1.1-4.8); LYMPHOCYTES % (AUTO) 16.6 % (21-51); MEAN CORPUSCULAR HEMOGLOBIN 29.9 PG (27.0-31.0); MEAN CORPUSCULAR HGB CONC 33.8 g/dL (33.0-36.5); MEAN CORPUSCULAR VOLUME 88.5 FL (78-98); MEAN PLATELET VOLUME 9.3 FL (7.4-10.4); MONOCYTES # (AUTO) 0.6 X10'3 (0-0.9); NEUTROPHILS # (AUTO) 5.1 X10'3 (1.8-7.7); NEUTROPHILS % (AUTO) 69.8 % (42-75); PLATELET COUNT 187 X10'3 (140-440); RED BLOOD COUNT 3.94 X10'6 (4.20-5.60); WHITE BLOOD COUNT 7.3 X10'3 (4.5-11.0)
[2018-09-23 13:57] LABS: ALBUMIN 3.5 G/DL (3.4-5.0); ANION GAP 4 (8-16); BLOOD UREA NITROGEN 23 MG/DL (7-18); BUN/CREATININE RATIO 17.6 (6.6-38.0); CALCIUM 9.4 MG/DL (8.5-10.1); CHLORIDE 109 MMOL/L (99-107); CREATININE 1.31 MG/DL (0.40-0.90); GLUCOSE 88 MG/DL (70-104); POTASSIUM 3.5 MMOL/L (3.5-5.1); SODIUM 146 MMOL/L (135-145); TOTAL CARBON DIOXIDE 32.9 MMOL/L (24-32); eGFR 40 ML/MIN
[2018-09-23 14:04] LABS: INR 1.1 INR; PARTIAL THROMBOPLASTIN TIME 24 SECONDS (22-32); PROTHROMBIN TIME 10.7 SECONDS (9.0-12.0)
[~2018-09-24] VITALS: Ht 170.2 cm; Wt 72.3 kg
[2018-09-24] VITALS (17 sets, daily range): BP systolic 100–155; BP diastolic 49–96
[2018-09-24] MEDS ORDERED: cefazolin/dext.iso 2gm/100ml 100 ML IV ONE ×2 (11:58→13:41)
[2018-09-24] MEDS ORDERED: normal saline 1000ml 1,000 ML IV SCH (12:00)
[2018-09-24] MEDS ORDERED: BISO1TAB4 PO (12:44)
[2018-09-24] MEDS ORDERED: AMIO200T54 PO (12:44)
[2018-09-24] MEDS ORDERED: lidocaine 1%/epinephrine 1:100,000 injection 50ml vial ONE (13:40)
[2018-09-24] MEDS ORDERED: midazolam 2 mg/2 ml injection ONE ×3 (13:40→14:54)
[2018-09-24] MEDS ORDERED: fentaNYL/PF 50MCG/1 ML 2ML syringe ONE ×2 (13:40→14:54)
[2018-09-24] MEDS ORDERED: ceFAZolin 1000mg inj ONE (13:41)
[2018-09-24] MEDS ORDERED: amiodarone 50MG/ML inj IV ONE (14:38)
--- NOTE | 2018-09-24 14:40 | NUR ---
VITALS STABLE. TRANSFUSION COMPLETE. PT WAS DISCHARGED HOME WITH HIS . PT HAD ALL BELONGINGS.
[2018-09-24] MEDS ORDERED: HYDROcodone/acetaminophen 5mg/325mg tablet PO PRN (15:55)
[2018-09-24] MEDS ORDERED: sod chloride 0.9% 10ml flush syringe IV SCH (16:00)
[2018-09-24] MEDS ORDERED: normal saline 1000ml 1,000 ML IV ONE (16:00)
[2018-09-24] MEDS ORDERED: amiodarone 150mg/dext, iso-os 100 ML IV ONE (17:05)
--- NOTE | 2018-09-24 18:45 | NUR ---
Patient in room PCU 3013. I have received report from Short Stay RN and had the opportunity to ask questions and assume patient care.
[2018-09-24] MEDS: HYDROcodone/acetaminophen 10/325mg tab PO PRN ×2 (18:57→23:22)
--- NOTE | 2018-09-24 19:00 | NUR ---
Pt arrived from [facility] via WC, accompanied by , in no acute distress. Assisted to BR f/void. Back to bed, immobilizing sling in place to L arm, pressure drsg to L upper chest CDI. Education given to pt. and regarding rationale f/Amiodarone drip and VS parameter goals. Mobile set up to monitor VS closely per IV Amiodarone protocol. Post-procedure VSS.
[2018-09-24] MEDS: amiodarone/D5 360MG/200ML BAG 200 ML IV SCH (19:38)
[2018-09-24] MEDS ORDERED: HYDROcodone/acetaminophen 10/325mg tab PO PRN (20:30)
[2018-09-24] MEDS ORDERED: albuterol 2.5 MG/3 ML nebule NEB PRN (21:20)
[2018-09-25] VITALS (7 sets, daily range): BP systolic 111–133; BP diastolic 56–75
[2018-09-25] MEDS: amiodarone/D5 360MG/200ML BAG 200 ML IV SCH ×2 (01:39→07:00)
[2018-09-25] MEDS: cephalexin 500mg capsule PO SCH ×2 (01:40→08:26)
[2018-09-25] MEDS: albuterol 2.5 MG/3 ML nebule NEB SCH ×2 (02:57→07:25)
--- NOTE | 2018-09-25 06:53 | NUR ---
Patient in room PCU 3013. I have received report from Laurel RN / Gary ROBERT and had the opportunity to ask questions and assume patient care.
--- NOTE | 2018-09-25 06:59 | NUR ---
Problems reprioritized. Patient report given, questions answered & plan of care reviewed with Cadence ROBERT.
[2018-09-25] MEDS ORDERED: atorvastatin 20mg tablet PO SCH (08:00)
[2018-09-25] MEDS ORDERED: atenolol 50mg tablet PO SCH (08:00)
[2018-09-25] MEDS ORDERED: folic acid 0.4mg tablet PO SCH (08:00)
[2018-09-25] MEDS ORDERED: apixaban 5mg tablet PO SCH (08:00)
[2018-09-25] MEDS ORDERED: HYDROchlorothiazide 25mg tablet PO SCH (08:00)
[2018-09-25] MEDS ORDERED: amiodarone 200mg tablet PO SCH (08:00)
[2018-09-25] MEDS ORDERED: potassium chloride 10mEq ER tablet PO SCH (08:00)
[2018-09-25] MEDS ORDERED: fluticasone nasal spray 16GM bottle NS SCH (08:00)
[2018-09-25] MEDS ORDERED: budesonide 0.5mg/2ml UD nebule IH SCH (08:00)
[2018-09-25] MEDS ORDERED: furosemide 20MG tablet PO SCH (08:00)
[2018-09-25] MEDS ORDERED: cyanocobalamin 500mcg tablet PO SCH (08:00)
[2018-09-25] MEDS: HYDROcodone/acetaminophen 10/325mg tab PO PRN (08:25)
[2018-09-25] MEDS ORDERED: calcium carbonate/vitamin D3 tablet PO SCH (08:30)
--- NOTE | 2018-09-25 11:12 | NUR ---
Telephoned [facility]. AM EKG is completed and on line, with hard copy in the chart. Requested PPM check up for this AM.
[2018-09-25] MEDS ORDERED: TRAM50TA2 PO (11:48)
--- NOTE | 2018-09-25 12:00 | NUR ---
PPM representation did internation and provided hard copy report to patients chart.
--- NOTE | 2018-09-25 13:20 | NUR ---
Discharge to home: Instructions for pacemaker care well understood. Return demonstration provided to nursing. Written discharge information provided. All belongings are with Pt. IV is out without s/s of infection, Sling is in place to Left side. Pt. understands the rational for no overhead reaching, and for leaving the sling on and dressing in place. Delivered via WC to Personal vehicle is driving. [facility]: Rx pain medications. She has radio time buyer help and will call for follow-up appointment with Dr. Canelo RUSHING this Thursday following the weekend.
== END 2018-09-25 13:20 | disposition home or self-care (01) ==
LOC: SSTAY O 11:42 → PCU 3S 18:55
PROVIDERS: ADMIT Internal Medicine Cardiovascular Disease; ATTEND Internal Medicine Cardiovascular Disease
DX: I49.5 Sick sinus syndrome (principal); I10 Essential (primary) hypertension; E78.5 Hyperlipidemia, unspecified; I48.0 Paroxysmal atrial fibrillation; I25.10 Atherosclerotic heart disease of native coronary artery without angina pectoris; Z86.79 Personal history of other diseases of the circulatory system
CPT/HCPCS: 33208; 36415; 71046; 80048; 85025; 85610; 85730; 93005; 94640; 94760; 96365; 96366; A6449; C1785; C1898; G0378; J0282; J0690; J2250; J3010; J3490; J7030; 99152; 99153; A4565; A4620; J3420; J7626

== ENCOUNTER 2019-01-20 06:59 | Day surgery (SDC) | payer MEDICARE, BC ==
[2019-01-19 09:08] LABS: BASOPHILS # (AUTO) 0.1 X10'3 (0-0.2); BASOPHILS % (AUTO) 1.1 % (0-1); EOSINOPHILS # (AUTO) 0.3 X10'3 (0-0.9); EOSINOPHILS % (AUTO) 5.4 % (0-6); HEMATOCRIT 31.4 % (35.0-45.0); HEMOGLOBIN 10.1 g/dl (12.0-16.0); LYMPHOCYTES # (AUTO) 1.3 X10'3 (1.1-4.8); MEAN CORPUSCULAR HEMOGLOBIN 25.8 PG (27.0-31.0); MEAN CORPUSCULAR HGB CONC 32.1 g/dL (33.0-36.5); MEAN CORPUSCULAR VOLUME 80.4 FL (78-98); MEAN PLATELET VOLUME 8.9 FL (7.4-10.4); MONOCYTES # (AUTO) 0.6 X10'3 (0-0.9); MONOCYTES % (AUTO) 10.3 % (2-12); NEUTROPHILS # (AUTO) 3.7 X10'3 (1.8-7.7); NEUTROPHILS % (AUTO) 62.2 % (42-75); PLATELET COUNT 215 X10'3 (140-440)
[2019-01-19 09:10] LABS: ALBUMIN 3.7 G/DL (3.4-5.0); ANION GAP 8 (8-16); BLOOD UREA NITROGEN 17 MG/DL (7-18); BUN/CREATININE RATIO 14.2 (6.6-38.0); CALCIUM 8.9 MG/DL (8.5-10.1); CHLORIDE 109 MMOL/L (99-107); GLUCOSE 87 MG/DL (70-104); POTASSIUM 3.8 MMOL/L (3.5-5.1); SODIUM 146 MMOL/L (135-145); TOTAL CARBON DIOXIDE 29.1 MMOL/L (24-32); eGFR 45 ML/MIN
[2019-01-20] VITALS (51 sets, daily range): BP systolic 61–158; BP diastolic 33–96
[~2019-01-20] VITALS: Ht 170.2 cm; Wt 72.8 kg
[~2019-01-20 06:59] MED LIST changes: +AMIO200T54 PO; -ATRNS; +BISO1TAB4 PO; -SOTA80TA73 PO
[2019-01-20] MEDS ORDERED: normal saline 1000ml 1,000 ML IV SCH (07:15)
[2019-01-20] MEDS ORDERED: morphine 10mg/ml inj. IV ONE (08:05)
[2019-01-20] MEDS ORDERED: MIDAZolam 5mg/ml 2ml vial IV ONE (08:05)
[2019-01-20] MEDS ORDERED: atropine 0.1mg/ml 10ml syringe IV ONE (08:05)
[2019-01-20] MEDS ORDERED: amiodarone 150mg/dext, iso-os 100 ML IV PRN (08:25)
[2019-01-20] MEDS ORDERED: magnesium 2GM in 50ml NS 50 ML IV ONE (10:00)
[2019-01-20] MEDS ORDERED: potassium Cl 20 mEq SR tablet PO ONE (10:00)
[2019-01-20] MEDS ORDERED: metoprolol tartrate 1mg/ml inj IV ONE ×2 (10:00)
[2019-01-20] MEDS ORDERED: amiodarone 150mg/dext, iso-os 100 ML IV ONE (11:55)
[2019-01-20] MEDS ORDERED: normal saline 500ml IV soln 500 ML IV ONE (14:05)
--- NOTE | 2019-01-20 14:07 | NUR ---
Went in to PT's room at 1216 to check on PT and her amiodarone infusion. PT stated she was seeing things, felt like she was going to pass out and she was diaphoretic and pale. Took her BP and it was SBP 80's. PT kept stating she going to pass out. Placed PT in Trendelenburg, gave her an IV bolus, and retook her VS. SBP dropped in the 60's. Had another RN page DR Lemos while I stayed at PT's bedside. Around 1240 Cadence, RN ppm rep was at bedside. She changed the settings to have heart rate go from 120's to 50's and PT stated she felt much better and her SBP went in the 100's. Paged again. called back and I informed of what had happened and he also talked with the PPM rep. PT was left V-paced. at bedside at 1400 and talked with PT and PT's . MD stated to sit her up, walk her, and if she tolerated it she could go home. Educated PT and PT's on the plan of care.
== END 2019-01-20 14:40 | disposition home or self-care (01) ==
LOC: SSTAY O 06:59
PROVIDERS: ATTEND Internal Medicine Cardiovascular Disease
DX: I48.0 Paroxysmal atrial fibrillation (principal); I50.33 Acute on chronic diastolic (congestive) heart failure; I11.0 Hypertensive heart disease with heart failure; I25.10 Atherosclerotic heart disease of native coronary artery without angina pectoris; E78.5 Hyperlipidemia, unspecified; I49.5 Sick sinus syndrome; Z88.8 Allergy status to other drugs, medicaments and biological substances
CPT/HCPCS: 36415; 80048; 85025; 85610; 92960; 93005; J0282; J2250; J2270; J3475; J7030; J7040; J3490

== ENCOUNTER 2019-03-15 04:31 | Emergency (ER) | payer MEDICARE, BC ==
[~2019-03-15] VITALS: Ht 170.2 cm; Wt 67.2 kg
[2019-03-15 05:22] LABS: BASOPHILS # (AUTO) 0.1 X10'3 (0-0.2); BASOPHILS % (AUTO) 1.7 % (0-1); EOSINOPHILS # (AUTO) 0.4 X10'3 (0-0.9); EOSINOPHILS % (AUTO) 5.8 % (0-6); HEMATOCRIT 26.2 % (35.0-45.0); HEMOGLOBIN 8.1 g/dl (12.0-16.0); LYMPHOCYTES # (AUTO) 1.1 X10'3 (1.1-4.8); LYMPHOCYTES % (AUTO) 18.1 % (21-51); MEAN CORPUSCULAR HEMOGLOBIN 22.3 PG (27.0-31.0); MEAN CORPUSCULAR HGB CONC 30.8 g/dL (33.0-36.5); MEAN CORPUSCULAR VOLUME 72.6 FL (78-98); MEAN PLATELET VOLUME 8.5 FL (7.4-10.4); MONOCYTES # (AUTO) 0.7 X10'3 (0-0.9); MONOCYTES % (AUTO) 11.3 % (2-12); NEUTROPHILS % (AUTO) 63.1 % (42-75); PLATELET COUNT 209 X10'3 (140-440); RED BLOOD COUNT 3.61 X10'6 (4.20-5.60); RED CELL DISTRIBUTION WIDTH 16.4 % (11.5-14.5); WHITE BLOOD COUNT 6.3 X10'3 (4.5-11.0)
[2019-03-15 05:46] LABS: ALANINE AMINOTRANSFERASE 31 U/L (12-78); ALBUMIN 3.6 G/DL (3.4-5.0); ALKALINE PHOSPHATASE 73 IU/L (46-116); ANION GAP 11 (8-16); ASPARTATE AMINO TRANSFERASE 21 U/L (10-37); BILIRUBIN,TOTAL 0.7 MG/DL (0.1-1.0); BLOOD UREA NITROGEN 23 MG/DL (7-18); BUN/CREATININE RATIO 18.3 (6.6-38.0); CHLORIDE 110 MMOL/L (99-107); CREATININE 1.26 MG/DL (0.40-0.90); GLUCOSE 97 MG/DL (70-104); POTASSIUM 3.7 MMOL/L (3.5-5.1); SODIUM 148 MMOL/L (135-145); TOTAL CARBON DIOXIDE 27.2 MMOL/L (24-32); TOTAL PROTEIN 7.1 G/DL (6.4-8.2); eGFR 42 ML/MIN
[2019-03-15 06:07] LABS: PARTIAL THROMBOPLASTIN TIME 24 SECONDS (22-32)
--- NOTE | 2019-03-15 06:50 | NUR ---
Discussed with MD Walls pt reports concern that HR has been going down to 68 and she is under impression her pace maker is set at 80 BPM always. Pt has been A-flutter 60s and paced 80 periodically since here. Pt to have pacemaker interigated.
[2019-03-15] MEDS ORDERED: furosemide 10 MG/1 ML 10ml inj IV ONE (07:55)
[2019-03-15 08:55] VITALS: BP 153/106
== END 2019-03-15 09:26 | disposition home or self-care (01) ==
LOC: ER 04:32
DX: I50.9 Heart failure, unspecified (principal); I48.91 Unspecified atrial fibrillation; E78.00 Pure hypercholesterolemia, unspecified; J44.9 Chronic obstructive pulmonary disease, unspecified; Z95.0 Presence of cardiac pacemaker; Z79.899 Other long term (current) drug therapy
CPT/HCPCS: 36415; 71045; 80053; 83880; 84484; 85025; 85610; 85730; 93005; 96374; 99284; J1940

== ENCOUNTER 2019-03-18 11:53 | Day surgery (SDC) | payer MEDICARE, BC ==
[2019-03-17 09:06] LABS: BASOPHILS % (AUTO) 0.7 % (0-1); EOSINOPHILS # (AUTO) 0.3 X10'3 (0-0.9); EOSINOPHILS % (AUTO) 5.8 % (0-6); HEMOGLOBIN 9.2 g/dl (12.0-16.0); LYMPHOCYTES % (AUTO) 16.9 % (21-51); MEAN CORPUSCULAR HGB CONC 30.5 g/dL (33.0-36.5); MEAN CORPUSCULAR VOLUME 72.1 FL (78-98); MEAN PLATELET VOLUME 8.5 FL (7.4-10.4); MONOCYTES # (AUTO) 0.6 X10'3 (0-0.9); MONOCYTES % (AUTO) 10.3 % (2-12); NEUTROPHILS # (AUTO) 3.8 X10'3 (1.8-7.7); NEUTROPHILS % (AUTO) 66.3 % (42-75); PLATELET COUNT 235 X10'3 (140-440); RED BLOOD COUNT 4.16 X10'6 (4.20-5.60); RED CELL DISTRIBUTION WIDTH 16.6 % (11.5-14.5); WHITE BLOOD COUNT 5.8 X10'3 (4.5-11.0)
[2019-03-17 09:26] LABS: ALBUMIN 4.1 G/DL (3.4-5.0); ANION GAP 12 (8-16); BLOOD UREA NITROGEN 28 MG/DL (7-18); BUN/CREATININE RATIO 18.3 (6.6-38.0); CALCIUM 9.2 MG/DL (8.5-10.1); CHLORIDE 107 MMOL/L (99-107); CREATININE 1.53 MG/DL (0.40-0.90); GLUCOSE 88 MG/DL (70-104); POTASSIUM 3.6 MMOL/L (3.5-5.1); SODIUM 147 MMOL/L (135-145); TOTAL CARBON DIOXIDE 28.5 MMOL/L (24-32); eGFR 34 ML/MIN
[~2019-03-18] VITALS: Ht 170.2 cm; Wt 70.0 kg
[2019-03-18] VITALS (12 sets, daily range): BP systolic 122–148; BP diastolic 56–75
[2019-03-18] MEDS ORDERED: normal saline 1,000 ML IV SCH (12:15)
[2019-03-18] MEDS ORDERED: MIDAZolam 5mg/ml 2ml vial IV ONE (13:00)
[2019-03-18] MEDS ORDERED: morphine 10mg/ml inj. IV ONE (13:00)
[2019-03-18] MEDS ORDERED: BISO5TAB PO (13:49)
== END 2019-03-18 14:50 | disposition home or self-care (01) ==
LOC: SSTAY O 11:53 → EDSTATUS 13:00 → SSTAY O 14:50
PROVIDERS: ATTEND Internal Medicine Cardiovascular Disease
DX: I34.0 Nonrheumatic mitral (valve) insufficiency (principal); Z09 Encounter for follow-up examination after completed treatment for conditions other than malignant neoplasm; I48.91 Unspecified atrial fibrillation; I50.33 Acute on chronic diastolic (congestive) heart failure; R53.83 Other fatigue; Z95.0 Presence of cardiac pacemaker; R00.1 Bradycardia, unspecified; I10 Essential (primary) hypertension
CPT/HCPCS: 36415; 80048; 85025; 85610; 93312; J2250; J2270; J7030

== ENCOUNTER 2019-05-04 15:26 | Outpatient (CLI) | payer MEDICARE, BC ==
[~2019-05-04] VITALS: Ht 170.2 cm; Wt 68.5 kg
[~2019-05-04 15:26] MED LIST changes: -AMIO200T54 PO; -BISO1TAB4 PO; +BISO5TAB PO
[2019-05-04] MEDS ORDERED: albuterol 2.5 MG/3 ML nebule NEB ONE (16:30)
== END 2019-05-04 23:59 | disposition home or self-care (01) ==
LOC: RT 15:26
PROVIDERS: ATTEND Internal Medicine Pulmonary Disease
DX: J44.9 Chronic obstructive pulmonary disease, unspecified (principal); J98.4 Other disorders of lung
CPT/HCPCS: 85018; 94060; 94727; 94729; 94760

== ENCOUNTER 2019-08-09 11:43 | Emergency (ER) | payer MEDICARE, BC ==
[~2019-08-09] VITALS: Ht 170.2 cm; Wt 67.8 kg
[2019-08-09] MEDS ORDERED: normal saline 1000ML IV soln IVB ONE ×2 (12:00→13:25)
[2019-08-09 12:34] LABS: LYMPHOCYTES # (AUTO) 0.6 X10'3 (1.1-4.8); MONOCYTES # (AUTO) 0.3 X10'3 (0-0.9); WHITE BLOOD COUNT 1.5 X10'3 (4.5-11.0)
[2019-08-09 12:35] LABS: BASOPHILS % (AUTO) 0.9 % (0-1); EOSINOPHILS % (AUTO) 3.2 % (0-6); HEMATOCRIT 35.4 % (35.0-45.0); HEMOGLOBIN 11.5 g/dl (12.0-16.0); LYMPHOCYTES % (AUTO) 38.5 % (21-51); MEAN CORPUSCULAR HEMOGLOBIN 29.5 PG (27.0-31.0); MEAN CORPUSCULAR HGB CONC 32.6 g/dL (33.0-36.5); MEAN CORPUSCULAR VOLUME 90.4 FL (78-98); MEAN PLATELET VOLUME 8.9 FL (7.4-10.4); MONOCYTES % (AUTO) 21.1 % (2-12); NEUTROPHILS # (AUTO) 0.5 X10'3 (1.8-7.7); NEUTROPHILS % (AUTO) 36.3 % (42-75); PLATELET COUNT 103 X10'3 (140-440); RED BLOOD COUNT 3.91 X10'6 (4.20-5.60); RED CELL DISTRIBUTION WIDTH 13.8 % (11.5-14.5)
[2019-08-09 12:48] LABS: ALANINE AMINOTRANSFERASE 27 U/L (12-78); ALKALINE PHOSPHATASE 70 IU/L (46-116); ANION GAP 4 (8-16); ASPARTATE AMINO TRANSFERASE 15 U/L (10-37); BILIRUBIN,TOTAL 0.8 MG/DL (0.1-1.0); BLOOD UREA NITROGEN 27 MG/DL (7-18); BUN/CREATININE RATIO 22.5 (6.6-38.0); CALCIUM 8.3 MG/DL (8.5-10.1); CHLORIDE 108 MMOL/L (99-107); GLUCOSE 90 MG/DL (70-104); POTASSIUM 3.4 MMOL/L (3.5-5.1); SODIUM 146 MMOL/L (135-145); TOTAL CARBON DIOXIDE 33.8 MMOL/L (24-32); TOTAL PROTEIN 6.1 G/DL (6.4-8.2); eGFR 45 ML/MIN
[2019-08-09 13:20] LABS: LARGE PLATELETS FEW; PLATELET ESTIMATE DECREASED; TOTAL CELLS COUNTED 100
[2019-08-09] MEDS ORDERED: magnesium oxide 400mg tablet PO ONE (15:15)
[2019-08-09 15:25] VITALS: BP 118/73
[2019-08-09 15:29] LABS: MAGNESIUM 1.9 MG/DL (1.5-2.4)
== END 2019-08-09 15:27 | disposition home or self-care (01) ==
LOC: ER 11:44
DX: E86.0 Dehydration (principal); R19.7 Diarrhea, unspecified; R10.30 Lower abdominal pain, unspecified; I48.91 Unspecified atrial fibrillation; I50.9 Heart failure, unspecified; E78.00 Pure hypercholesterolemia, unspecified; J44.9 Chronic obstructive pulmonary disease, unspecified; Z79.01 Long term (current) use of anticoagulants; Z95.0 Presence of cardiac pacemaker; Z79.899 Other long term (current) drug therapy
CPT/HCPCS: 36415; 80053; 83735; 85025; 93005; 99284; J7030

== ENCOUNTER 2019-10-15 08:21 | Emergency (ER) | payer MEDICARE, BC ==
[~2019-10-15] VITALS: Ht 167.6 cm; Wt 66.8 kg
[2019-10-15 09:38] LABS: MONOCYTES # (AUTO) 0.7 X10'3 (0-0.9); NEUTROPHILS # (AUTO) 0.4 X10'3 (1.8-7.7); PLATELET COUNT 394 X10'3 (140-440); WHITE BLOOD COUNT 1.6 X10'3 (4.5-11.0)
[2019-10-15 09:40] LABS: BASOPHILS % (AUTO) 0.4 % (0-1); EOSINOPHILS % (AUTO) 3.1 % (0-6); HEMATOCRIT 23.5 % (35.0-45.0); HEMOGLOBIN 7.8 g/dl (12.0-16.0); LYMPHOCYTES # (AUTO) 0.4 X10'3 (1.1-4.8); LYMPHOCYTES % (AUTO) 26.2 % (21-51); MEAN CORPUSCULAR HEMOGLOBIN 32.3 PG (27.0-31.0); MEAN CORPUSCULAR HGB CONC 33.1 g/dL (33.0-36.5); MEAN CORPUSCULAR VOLUME 97.4 FL (78-98); MEAN PLATELET VOLUME 8.5 FL (7.4-10.4); MONOCYTES % (AUTO) 44.9 % (2-12); NEUTROPHILS % (AUTO) 25.4 % (42-75); RED BLOOD COUNT 2.42 X10'6 (4.20-5.60); RED CELL DISTRIBUTION WIDTH 18.1 % (11.5-14.5)
[2019-10-15 09:41] VITALS: BP 122/57
[2019-10-15 09:52] LABS: PARTIAL THROMBOPLASTIN TIME 29 SECONDS (22-32)
[2019-10-15 09:55] LABS: ALANINE AMINOTRANSFERASE 20 U/L (12-78); ALBUMIN 2.9 G/DL (3.4-5.0); ALBUMIN/GLOBULIN RATIO 0.8 (1.1-1.5); ALKALINE PHOSPHATASE 64 IU/L (46-116); ANION GAP 7 (8-16); ASPARTATE AMINO TRANSFERASE 26 U/L (10-37); BILIRUBIN,TOTAL 0.9 MG/DL (0.1-1.0); BLOOD UREA NITROGEN 14 MG/DL (7-18); CALCIUM 8.3 MG/DL (8.5-10.1); CHLORIDE 105 MMOL/L (99-107); CREATININE 1.27 MG/DL (0.40-0.90); GLUCOSE 83 MG/DL (70-104); POTASSIUM 3.6 MMOL/L (3.5-5.1); SODIUM 142 MMOL/L (135-145); TOTAL CARBON DIOXIDE 30.1 MMOL/L (24-32); TOTAL PROTEIN 6.4 G/DL (6.4-8.2); eGFR 42 ML/MIN
[2019-10-15 09:59] LABS: ANISOCYTOSIS 2+; LARGE PLATELETS FEW; PLATELET ESTIMATE NORMAL; POLYCHROMASIA FEW; TOTAL CELLS COUNTED 100
[2019-10-15 10:01] LABS: MAGNESIUM 1.9 MG/DL (1.5-2.4)
[2019-10-15] MEDS ORDERED: furosemide 20MG tablet PO ONE (10:15)
[2019-10-15] MEDS ORDERED: AMOX-422 PO (10:17)
== END 2019-10-15 10:49 | disposition home or self-care (01) ==
LOC: ER 08:22
DX: I50.9 Heart failure, unspecified (principal); R06.02 Shortness of breath; I48.91 Unspecified atrial fibrillation; E78.00 Pure hypercholesterolemia, unspecified; J44.9 Chronic obstructive pulmonary disease, unspecified; Z95.0 Presence of cardiac pacemaker; Z98.890 Other specified postprocedural states; Z79.2 Long term (current) use of antibiotics; Z79.01 Long term (current) use of anticoagulants; Z79.899 Other long term (current) drug therapy
CPT/HCPCS: 36415; 71046; 80053; 83605; 83735; 83880; 84484; 85025; 85610; 85730; 87040; 93005; 99285